=== PATIENT | female | born 1975 | race Caucasian/White ===

== ENCOUNTER 2021-07-27 15:23 | Emergency (ER) | payer OTHER ==
[2021-07-27 15:47] VITALS: BP 141/86; PULSE 88; TEMP 98.3; BMI 28.1
[2021-07-27] MEDS ORDERED: KETOROLAC TROMETHAMINE 30 MG/1 ML VIAL IM ONE (16:58)
[2021-07-27] MEDS ORDERED: KETOROLAC TROMETHAMINE 30 MG/1 ML VIAL ONE (17:03)
== END 2021-07-27 17:10 | disposition home or self-care (01) ==
LOC: JERFT 15:23 → JER 15:23 → JERFT 17:10
PROC: 3E023GC Introduction of Other Therapeutic Substance into Muscle, Percutaneous Approach (ICD-10-PCS; principal; 2021-07-27)
DX: S83.91XA Sprain of unspecified site of right knee, initial encounter (principal); W50.0XXA Accidental hit or strike by another person, initial encounter
CPT/HCPCS: 73562-TC-RT-FY; 73630-TC-RT-FY; 99284-25

== ENCOUNTER 2023-04-02 02:52 | Emergency (ER) | payer OTHER ==
[2023-04-02 03:00] VITALS: RESP 18; BMI 30.7
[2023-04-02] MEDS ORDERED: ACETAMINOPHEN 500 MG TABLET (FP) PO ONE (05:34)
[2023-04-02] MEDS ORDERED: ACETAMINOPHEN 325 MG TABLET (FP) ONE (05:36)
[2023-04-02] MEDS ORDERED: DIPHTH,PERTUSS(ACELL),TET 0.5 ML DISP.SYRIN IM ONE ×2 (06:11→06:39)
[2023-04-02] MEDS ORDERED: BACITRACIN ZINC 15 GM TUBE TOPICAL OINTMENT TP ONE (06:41)
[2023-04-02] MEDS ORDERED: morphine CARPU-JECT 2 MG/1 ML DISP.SYRIN IVPUSH ONE ×2 (07:58→11:54)
[2023-04-02] MEDS ORDERED: LACTATED RINGERS SOLUTION 1000 ML INFUS.BAG IV ONE (07:58)
[2023-04-02] MEDS ORDERED: morphine SULFATE 4 MG/ML VIAL ONE ×2 (08:01→11:58)
[2023-04-02] MEDS ORDERED: BACITRACIN ZINC 15 GM TUBE TOPICAL OINTMENT ONE (10:23)
[2023-04-02 11:24] VITALS: BP 124/84; PULSE 84; TEMP 98.6
== END 2023-04-02 12:00 | disposition short-term general hospital (02) ==
LOC: JER 02:52
PROC: 3E033GC Introduction of Other Therapeutic Substance into Peripheral Vein, Percutaneous Approach (ICD-10-PCS; principal; 2023-04-02)
PROC: 3E033GC Introduction of Other Therapeutic Substance into Peripheral Vein, Percutaneous Approach (ICD-10-PCS; 2023-04-02)
PROC: 3E0234Z Introduction of Serum, Toxoid and Vaccine into Muscle, Percutaneous Approach (ICD-10-PCS; 2023-04-02)
DX: T23.201A Burn of second degree of right hand, unspecified site, initial encounter (principal); T23.231A Burn of second degree of multiple right fingers (nail), not including thumb, initial encounter; T23.051A Burn of unspecified degree of right palm, initial encounter; M79.89 Other specified soft tissue disorders; R20.0 Anesthesia of skin; X19.XXXA Contact with other heat and hot substances, initial encounter; Y27.8XXA Contact with other hot objects, undetermined intent, initial encounter; Y93.G2 Activity, grilling and smoking food
CPT/HCPCS: 90715; 99285-25